=== PATIENT | female | born 1990 | race Caucasian/White ===

== ENCOUNTER 2019-05-08 06:58 | Emergency (ER) | payer MEDICAID, OTHER, SELFPAY ==
[~2019-05-08] VITALS: Ht 160 cm; Wt 70.0 kg
--- NOTE | 2019-05-08 07:27 | NUR ---
First contact with pt. Pt c/o epigastric pain with N/V intermittently x1 week. Pt states hx of h.pylori 1 year ago with similar sx. Pt ambulatory to bathroom and back to bed with steady gait. Urine sample collected. Pt positioned for comfort in bed with warm blanket. Continuous oxygen and BP monitors applied, all safety measures observed.
[2019-05-08 07:56] LABS: MICROSCOPIC AUTO
[2019-05-08 08:06] LABS: BASOPHILS # (AUTO) 0.02 x10^3/uL (0-0.1); BASOPHILS % (AUTO) 0 % (0-1); EOSINOPHILS # (AUTO) 0.23 x10^3/uL (0-0.4); EOSINOPHILS % (AUTO) 3 % (1-7); LYMPHOCYTES # (AUTO) 1.58 x10^3/uL (1-3.4); LYMPHOCYTES % (AUTO) 23 % (22-44); MD NO; MEAN CORPUSCULAR HEMOGLOBIN 31.9 pg (27.0-34.8); MEAN CORPUSCULAR HGB CONC 33.6 g/dL (32.4-35.8); MEAN PLATELET VOLUME 7.8 fL (7.4-10.4); MONOCYTES # (AUTO) 0.38 x10^3/uL (0.2-0.8); MONOCYTES % (AUTO) 6 % (2-9); NEUTROPHILS # (AUTO) 4.69 x10^3/uL (1.8-6.8); NEUTROPHILS % (AUTO) 68 % (42-75); PLATELET COUNT 178 x10^3/uL (130-400); RED BLOOD COUNT 4.74 x10^6/uL (3.82-5.3); RED CELL DISTRIBUTION WIDTH 12.5 % (9.6-15.2)
[2019-05-08 08:20] LABS: ALANINE AMINOTRANSFERASE 32 U/L (12-78); ALBUMIN 3.7 g/dL (3.4-5.0); ANION GAP 7 mmol/L (5-15); CALCIUM 8.9 mg/dL (8.5-10.1); CHLORIDE 110 mmol/L (98-107); CREATININE 0.63 mg/dL (0.55-1.02)
[2019-05-08 08:24] LABS: ALKALINE PHOSPHATASE 65 U/L (45-117); BILIRUBIN,TOTAL 0.5 mg/dL (0.2-1.0)
--- NOTE | 2019-05-08 09:24 | NUR ---
Pt resting in bed, resp even and unlabored, NADN. Pt denies needs. Awaiting recheck.
[2019-05-08 11:06] VITALS: BP 110/72
== END 2019-05-08 11:08 | disposition home or self-care (01) ==
LOC: ED 08:13
DX: K29.00 Acute gastritis without bleeding (principal)
CPT/HCPCS: 36415; 80053; 81001; 83690; 84703; 85025; 99283